=== PATIENT | male | born 1995 | race Asian ===

== ENCOUNTER 2018-05-22 11:56 | Emergency (ER) | payer BC, OTHER ==
[~2018-05-22] VITALS: Ht 170.2 cm; Wt 54.0 kg
[~2018-05-22 11:56] MED LIST: ALLO100T30 PO
[2018-05-22 11:59] VITALS: BP 145/83
== END 2018-05-22 12:51 | disposition home or self-care (01) ==
LOC: ED 12:45
DX: M54.31 Sciatica, right side (principal); I10 Essential (primary) hypertension
CPT/HCPCS: 99283